=== PATIENT | male | born 1940 | race Caucasian/White ===

== ENCOUNTER 2017-04-21 01:24 | Emergency (ER) | payer MEDICARE, OTHER ==
[2016-06-29 00:12] VITALS: BMI 34.7
[~2017-04-21 01:24] MED LIST: FLUTICASONE PRO16 GM NASAL; HYDROCODONE-APA1 TAB PO; PRAVASTATIN SOD10 MG PO; PROTONIX40 MG PO; ZYRTEC10 MG PO
[2017-04-21 01:51] LABS: BASOPHILS 0.2 % (0-2); EOSINOPHILS 2.1 % (0-7); HEMATOCRIT 48.5 % (42.0-54.0); IMMATURE GRANULOCYTES 0.2 % (0-5); LYMPHOCYTES 34.9 % (15-50); MCH 31.8 pg (26.0-34.0); MCHC 35.1 g/dL (31.0-37.0); MCV 90.8 fL (80.0-100.0); MEAN PLATELET VOLUME 13.1 fL (7.4-10.4); MONOCYTES 12.6 % (2-11); PLATELET COUNT 166 10x3/uL (130-400); RBC 5.34 10x6/uL (4.20-6.10); RDW 14.3 % (11.5-14.5); WBC 12.2 10x3/uL (4.8-10.8)
[2017-04-21 02:06] LABS: ALBUMIN 3.8 g/dL (3.4-5.0); ALKALINE PHOSPHATASE 60 U/L (46-116); ALT (SGPT) 33 U/L (10-68); CALC OSMOLALITY 277 mosm/kg (275-300); CALCIUM 8.9 mg/dL (8.5-10.1); CARBON DIOXIDE 27.8 mmol/L (21.0-32.0); CHLORIDE - SERUM 104 mmol/L (98-107); CREATININE - SERUM 1.1 mg/dL (0.6-1.3); GLUCOSE 88 mg/dL (74-106); POTASSIUM - SERUM 4.4 mmol/L (3.5-5.1); PROTEIN - SERUM 6.8 g/dL (6.4-8.2); SODIUM 140 mmol/L (136-145); UREA NITROGEN 12 mg/dL (7-18); eGFR NON AFRICAN AMERICAN 69 mL/min (90-120)
[2017-04-21 02:24] LABS: CREATINE KINASE 335 UL (21-232); MAGNESIUM - SERUM 1.9 mg/dL (1.8-2.4); PRO BNP 66 pg/mL (0-125); TROPONIN-I 0.021 ng/mL (0.000-0.060)
[2017-04-21 02:26] LABS: CKMB 4.2 U/L (0.0-3.6)
== END 2017-04-21 02:30 | disposition home or self-care (01) ==
LOC: D.ER 01:24
PROVIDERS: Emergency Medicine
DX: R06.00 Dyspnea, unspecified (principal); K21.9 Gastro-esophageal reflux disease without esophagitis; R50.9 Fever, unspecified

== ENCOUNTER 2017-11-05 22:45 | Observation (INO) | payer MEDICARE, OTHER ==
[~2017-11-05] VITALS: Ht 198.1 cm; Wt 90.2 kg
--- NOTE | ~2017-11-05 | EC ---
PATIENT:SUSAN GUTIERREZ DATE OF SERVICE: 11/06/17 SEX: M MEDICAL RECORD: [id number] DATE OF : 44 LOCATION:D.M2 D.212 AGE OF PATIENT: 77 ADMISSION DATE: 11/06/17 REFERRING PHYSICIAN: INTERPRETING PHYSICIAN: CAIMLO POWELL MD ECHOCARDIOGRAM REPORT ECHO CHARGES 4 ECHO COMPLETE Date: CLINICAL DIAGNOSIS: CP - H/O MVR ECHOCARDIOGRAPHIC MEASUREMENTS (adult normal given) AC root (d.<3.7cm) 3.1 cm LV Septum d (<1.2 cm> 1.1 cm Valve Excursion 1.5 cm LV Septum (systole) 1.7 cm Left Atria (s.<4.0cm> 4.6 cm LVPW d(<1.2cm) 1.3 cm RV (d.<2.3cm) 2.8 cm LVPW (sytole) 2.0 cm LV diastole(<5.6CM) 6.6 cm MV E-F(>70mm/sec) cm LV systole 4.8 cm LVOT Diameter 2.0 cm MV exc.(>10mm) cm Est.ejection fraction (50-75%) % DOPPLER: LVIT cm/sec A 153 cm/sec E 175 cm/sec LA cm/sec RVSP 60.0 mmHg LVOT 89.0 cm/sec AOP1/2T m/s Asc. Ao 177 cm/sec RVOT 60.0 cm/sec RA cm/sec PA 89.0 cm/sec AV Gradient Peak 13.0 mmHg AV Mean 6.5 mmHg AV Area 1.9 cm MV Gradient Peak 9.3 mmHg MV Mean 3.9 mmHg MV Area cm COMMENTS: Bobbin Disker: Mariela RODRIGUEZOE Sales Team Member: 4 Dr. Powell TAPE# PACS Pericardial Effusion N DATE OF SERVICE: 11/06/2017 Transthoracic Echocardiogram FINDINGS: 1. Left ventricle has evidence of mild left ventricular hypertrophy. Ejection fraction is 65%. There are no regional wall motion abnormalities. Inflow characteristics are otherwise normal. The peak gradient across the mitral valve is 9.3 mmHg. Peak gradient across the aortic valve is 13 mmHg. 2. The mitral valve is shown to have bioprosthesis. The pressure halftime ECHOCARDIOGRAM REPORT [id number] SUSAN GUTIERREZ across it is 159. Peak pressure gradient is normal. It does not appear to have sonographic evidence of mitral regurg or mitral stenosis and we cannot see the opening and closing of the valve very well on his echocardiogram. 3. The aortic valve is sclerotic without any evidence of stenosis or significant regurgitation. 4. Tricuspid valve has moderate tricuspid regurgitation and moderate to severe evidence of pulmonary hypertension. 5. The left atrium is moderately dilated. 6. The right ventricle is normal size, normal function. 7. The pulmonic valve is grossly normal. CONCLUSION: The patient has mitral valve replacement and even though the patient has evidence of pulmonary hypertension, there does not appear to be significant sonographic evidence of mitral valve degeneration or restenosis at this point and the left atrium is although mildly dilated is not severely dilated, but of note is the suggestion of pulmonary hypertension. TRANSINT:[id number] Voice Confirmation ID: [id number] DOCUMENT ID: [id number] 11/11/2017 Edited to correct date of service, dm. CAMILO POWELL MD at 1426 CC: [id number] DICTATION DATE: 11/07/17 1152 MINUTE CLERK FOR BASIC TRAFFIC: 11/07/17 1208 DIS IN 11/07/17 [facility] [address] [place] [address]
--- NOTE | ~2017-11-05 | HEMODYNAMI ---
PATIENT:SUSAN GUTIERREZ MEDICAL RECORD: [id number] : 44 [id number] ADMISSION DATE: 11/06/17 Generatedon:11/06/201710:46 Patient name: SUSAN GUTIERREZ Patient #: [id number] SSN: : 1940 Date of study: 11/06/2017 Page: Of Hemodynamic Procedure Report Patient Data Patient Demographics Procedure consent was obtained First Name: SUSAN Gender: Male Last Name: BRENDA : 1940 [facility] Initial: J Age: 77 year(s) Patient #: [id number] Race: Unknown Additional ID: [id number] Contact details Address: [address] [place], [place] [address] [facility] State: [place] City: [place] Zip code: [address] Past Medical History Allergies: No known allergies Admission Admission Data Admission Date: 11/06/2017 Admission Time: 1:13 Admit Source: Other Room #: D.2120 Lab Results Lab Result Date: 11/06/2017 Lab Result Time: 7:29 Biochemistry Name Units Result Min Max BUN mg/dl 14 --(--*-)-- 7 18 Creatinine mg/dl 1.1 --(--*-)-- 0.6 1.3 CBC Name Units Result Min Max Hematocrit % 44.9 --(*---)-- 42 54 Hemoglobin g/dl 15.2 --(-*--)-- 13.5 17.5 Procedure Procedure Types Cath Procedure Diagnostic Procedure LHC LHC w/Coronaries Procedure Description Procedure Date Procedure Date: 11/06/2017 Procedure Start Time: 10:30 Procedure End Time: 10:44 Procedure Staff Name Function Maldonado Torres MD Performing Physician Yvette Dawson RT Monitor Bro Quijano RT Scrub Gracie Kuhn RN Nurse Procedure Data Cath Procedure Fluoroscopy Diagnostic fluoroscopy Total fluoroscopy Time: 2.6 time: 2.6 min min Diagnostic fluoroscopy Total fluoroscopy dose: 734 dose: 734 mGy mGy Contrast Material Contrast Material Type Amount (ml) Isovue 300 51 Entry Location Entry Primary Successful Side Size Upsize Upsize Entry Closure Turner ccessful Closure Location (Fr) 1 (Fr) 2 (Fr) Remarks Device Remarks Radial Right 6 Fr Mechanical artery Short Compression Estimated blood loss: 5 ml Diagnostic catheters Device Type Used For End Catheter Placement DIAGNOSTIC [place] 110cm 5 Procedure Fr catheter ([id number]) Procedure Complications No complications Procedure Medications Medication Administration Route Dosage Oxygen NC 2 l/min Lidocaine 2% added to field 20 Heparin Flush Bag added to field 2 bags (1000units/500ml NS) 0.9% NaCl I.V. 100 ml/hr Versed I.V. 2 mg Fentanyl I.V. 25 mcg Radial Cocktail I.A. 1 syringe (Verapomil 2mg/Nitro 400mcg/Heparin 1500units) Hemodynamics Rest Heart Rate: 67 (bpm) Pressure Samples Time Site Value (mmHg) Purpose Heart Use Rate(bpm) 10:35 LV 144/4,7 EDP 72 10:36 AO 136/76(102) Pullback 71 10:36 LV 145/19,4 Pullback 71 Gradients Valve Time Site 1 Site 2 Mean SEP/DFP Peak To Heart Use (mmHg) (sec/min) Peak Rate (mmHg) (bpm) Aortic 10:36 LV AO 9 13 9 71 145/19,4 136/76(102) Calculations Valve P-P Mean Valve Index Valve Source Name Gradient Area Flow (cm2) Aortic 9 9 9 9 Snapshots Pre Cath Intra NCS Post Cath Vital Signs Time Heart Resp SPO2 etCO2 NIBP (mmHg) Rhythm Pain Sedation Rate (ipm) (%) (mmHg) Status Level (bpm) 10:30:41 66 17 96 193/102(150) NSR 0 (11) 10(A) , No pain 10:34:57 72 15 97 26.9 169/89(129) NSR 0 (11) 10(A) , No pain 10:39:40 69 13 97 32.1 172/80(117) NSR 0 (11) 10(A) , No pain 10:42:17 67 14 96 34.68 171/82(140) NSR 0 (11) 10(A) , No pain Medications Time Medication Route Dose Verified Delivered Reason Notes Effectiveness by by 10:28:01 Oxygen NC 2 l/min Maldonado Bowman used for Brian Kuhn RN procedure MD 10:28:07 Lidocaine 2% added 20ml Maldonado Maldonado for local to vial Brian Torres MD anesthetic field MD 10:28:12 Heparin Flush added 2 bags Maldonado Maldonado used for Bag to Brian Torres MD procedure (1000units/500ml field NS) 10:28:21 0.9% NaCl I.V. 100 Maldonado Buffie Per ml/hr Brian Kuhn RN physician 10:32:28 Versed I.V. 2 mg Maldonado Buffie for sedation Brian Kuhn RN, MD 10:32:34 Fentanyl I.V. 25 mcg Maldonado Buffie for sedation Brian Kuhn RN, MD 10:34:35 Radial Cocktail I.A. 1 Maldonado Maldonado for (Verapomil syringe Brian Torres MD vasodilation 2mg/Nitro MD 400mcg/Heparin 1500units) Procedure Log Time Note 9:50:06 Gracie Kuhn RN sent for patient. Start room use. 9:51:28 Informed consent obtained and on chart 9:51:33 Admit Source: Other 9:52:02 Diagnostic Cath status Elective 9:52:08 Time tracking: Call back 9:52:12 Plan of Care:Hemodynamics will remain stable., Cardiac rhythm will remain stable., Comfort level will be maintained., Respiratory function will remain adequate., Patient/ family verbilizes understanding of procedure., Procedure tolerated without complication., Recovers from procedure without complications.. 10:11:27 Patient received from Pre/Post Procedure Room to CCL 1 Alert and oriented. Tansferred to table in Supine position. 10:11:29 Warm blankets applied, and munira hugger turned on for patient comfort. 10:11:30 Correct patient and procedure confirmed by team. 10:11:31 ECG and BP/O2 sat monitors applied to patient. 10:11:33 Pre-procedure instructions explained to patient. 10:11:33 Pre-op teaching completed and patient verbalized understanding. 10:11:35 Family in waiting room. 10:11:38 Patient NPO since Midnight. 10:11:46 Patient allergic to No known allergies 10:28:01 Oxygen 2 l/min NC was administered by Gracie Kuhn RN; used for procedure; 10:28:07 Lidocaine 2% 20ml vial added to field was administered by Maldonado Torres MD; for local anesthetic; 10:28:12 Heparin Flush Bag (1000units/500ml NS) 2 bags added to field was administered by Maldonado Torres MD; used for procedure; 10:28:21 0.9% NaCl 100 ml/hr I.V. was administered by Gracie Kuhn RN; Per physician; 10:29:05 Vital chart was started 10:29:07 Baseline sample Acquired. 10:29:11 Rhythm: sinus rhythm 10:29:11 Full Disclosure recording started 10:29:15 Is the patient allergic to Iodine/contrast media? No. 10:29:16 Is patient on blood thinner?Yes 10:29:18 ACC The patient was administered the following blood thiners within the last 24 hours: ACCPlavix 10:29:19 Patient diabetic? No. 10:29:22 Previous problem with sedation/anesthesia? No ? 10:29:22 Snore? Yes 10:29:23 Sleep apnea? Yes 10:29:24 Deviated septum? No 10:29:25 Opens mouth fully? Yes 10:29:26 Sticks out tongue? Yes 10:29:32 Airway obstruction? Yes childhood asthma 10:29:42 Dentures? No ? 10:29:45 Modified Chinmay's test Ulnar < 7 seconds 10:29:47 Patient pain scale 0/10 ?. 10:29:51 IV patent on arrival in left antecubital with 0.9% NaCl at [facility]. 10:29:53 Lab results completed and on chart. 10:29:55 Right Radial & Right Groin area was prepped with chlora-prep and draped in sterile fashion 10:29:56 Alarms reviewed by R. N. 10:29:56 Sharps counted by scrub and verified by R.N. 10:29:58 Use device set Radial Dx or PCI 10:29:59 ACIST Syringe (58570) opened to sterile field. 10:29:59 Medline Cath Pack ([id number]) opened to sterile field. 10:30:00 Bag Decanter () opened to sterile field. 10:30:01 ACIST Manifold (64236) opened to sterile field. 10:30:01 ACIST Hand Control (72807) opened to sterile field. 10:30:02 MBrace Wrist Support ([id number]) opened to sterile field. 10:30:03 Tegaderm 4 x 4 (1626W) opened to sterile field. 10:30:06 DIAGNOSTIC WIRE .035 260cm J wire (336509) opened to sterile field. 10:30:14 SHEATH 6Fr Prelude Radial ([id number]) opened to sterile field. 10:30:22 Physician arrived 10:: --------ALL STOP TIME OUT------ 10:: Final Timeout: patient, procedure, and site verified with staff and physician. All members of the team are in agreement. 10:30:27 Right Radial & Right Groin site verified by team. 10:30:30 Physical assessment completed. ASA score P 2 - A patient with mild systemic disease as per Maldonado Torres MD. 10:30:32 Sedation plan: IV Moderate Sedation Medication:Versed, Fentanyl 10:30:37 Procedure started. 10:30:41 Local anesthetic to right radial artery with Lidocaine 2% by Maldonado Torres MD.INITIAL ACCESS ONLY 10:31:10 A 6 Fr Short sheath was inserted into the Right Radial artery 10:31:51 Zero performed for pressure channel P1 10:32:28 Versed 2 mg I.V. was administered by Gracie Kuhn RN; for sedation; 10:32:34 Fentanyl 25 mcg I.V. was administered by Gracie Kuhn RN; for sedation; 10:33:01 Lab Result : Hematocrit 44.9 % 10:33:01 Lab Result : BUN 14 mg/dl 10:33:01 Lab Result : Creatinine 1.1 mg/dl 10:33:01 Lab Result : Hemoglobin 15.2 g/dl 10:33:21 A DIAGNOSTIC [place] 110cm 5 Fr catheter (116975) was advanced over the wire and used for Procedure. 10:34:35 Radial Cocktail (Verapomil 2mg/Nitro 400mcg/Heparin 1500units) 1 syringe I.A. was administered by Maldonado Torres MD; for vasodilation; 10:35:45 LV gram done using HAILE 10:35:48 Injector settings: Ml/sec: 10, Volume: 20, 10:35:50 LV hemodynamics recorded. 10:36:07 EF : 65 % 10:36:14 RCA angiography performed. 10:36:58 LCA angiography performed. 10:39:31 Catheter removed. 10:39:49 TR BAND Large ([id number]) opened to sterile field. 10:41:10 Sheath removed intact; hemostasis achieved with Mechanical Compression to the Right Radial artery. 10:41:12 Procedure ended.(Physican Out) 10:41:23 Fluoroscopy time 02.60 minutes. 10:41:26 Fluoroscopy dose: 734 mGy 10:41:26 Flurop Dose total: 734 10:41:29 Contrast amount:Isovue 300 51ml. 10:43:07 TR band inflated with 12cc of air. 10:43:08 Insertion/operative site no bleeding no hematoma. 10:43:13 Post right radial artery:stable, soft, clean and dry 10:43:16 Post-procedure physical assessment completed. ASA score P 2 - A patient with mild systemic disease as per Maldonado Torres MD. 10:43:18 Post procedure rhythm: unchanged. 10:43:20 Estimated blood loss: 5 ml 10:43:22 Post procedure instruction explained to patient.Patient verbalizes understanding. 10:43:22 Patient needs reinforcement of post procedure teaching. 10:43:56 Procedure and supply charges have been captured, reviewed, submitted and are correct. 10:43:58 Procedure Complication : No complications 10:44:00 Vital chart was stopped 10:44:00 See physician's report for complete and final results. 10:44:01 Report given to PCU. 10:44:03 Patient transfered to PCU with Stretcher. 10:44:05 Report given to PCU. 10:44:22 Procedure ended. 10:44:22 Full Disclosure recording stopped 10:44:27 End room use (Document Last) Device Usage Item Name Manufacture Quantity Catalog Number Hospital Part Current M inimal Lot# / Charge Number Stock Stock Serial# Code ACIST Syringe Acist 1 34879 865116 785400 [id number] 2 0 (74632) Medical Systems Vtrim Medline Cath Cardinal 1 [id number] 113470 94935 171859 5 Pack Health ([id number]) Bag Decanter Microtek 1 032395 14492 339438 5 () Medical Inc. ACIST Manifold Acist 1 58280 879749 477540 663791 5 (80882) Medical Systems Inc ACIST Hand Acist 1 12332 273701 499864 655311 5 Control (68800) Medical Systems Inc MBrace Wrist Advanced 1 140-0250-00 439782 45964 755934 5 Support Vascular ([id number]) Dynamics Tegaderm 4 x 4 3M 1 1626W 519675 686491 028731 5 (1626W) DIAGNOSTIC WIRE [facility] Maxim[facility]iano 1 710497 315803 108877 281112 3 0 .035 260cm J wire (554619) SHEATH 6Fr Merit 1 [id number] 241591 337623 459679 5 Prelude Radial Medical ([id number]) DIAGNOSTIC Terumo 1 40-5903 006660 169732 333302 5 [place] 110cm 5 Fr catheter (445906) TR BAND Large Terumo 1 [id number] 290642 601780 590332 4 0 ([id number]) Signature Audit [place] Time Signature Unsigned Intra-Procedure 11/06/2017 Bro Quijano 10:46:10 AM RT(R) Signatures Monitor : Yvette Dawson Signature : RT Date : Time : [facility] [address] [place] [address]
[2017-11-05 23:18] LABS: BASOPHILS 0.2 % (0-2); EOSINOPHILS 0.3 % (0-7); HEMATOCRIT 45.7 % (42.0-54.0); HEMOGLOBIN 15.7 g/dL (13.5-17.5); IMMATURE GRANULOCYTES 0.2 % (0-5); LYMPHOCYTES 26.5 % (15-50); MCH 31.4 pg (26.0-34.0); MCHC 34.4 g/dL (31.0-37.0); MCV 91.4 fL (80.0-100.0); MEAN PLATELET VOLUME 12.8 fL (7.4-10.4); MONOCYTES 16.8 % (2-11); PLATELET COUNT 180 10x3/uL (130-400); RDW 15.1 % (11.5-14.5); WBC 12.3 10x3/uL (4.8-10.8)
[2017-11-05 23:47] LABS: ALBUMIN 3.4 g/dL (3.4-5.0); ALKALINE PHOSPHATASE 58 U/L (46-116); ALT (SGPT) 25 U/L (10-68); BILIRUBIN - TOTAL 0.45 mg/dL (0.2-1.3); CALCIUM 8.5 mg/dL (8.5-10.1); CARBON DIOXIDE 25.5 mmol/L (21.0-32.0); CHLORIDE - SERUM 105 mmol/L (98-107); CREATININE - SERUM 1.1 mg/dL (0.6-1.3); POTASSIUM - SERUM 3.9 mmol/L (3.5-5.1); SODIUM 138 mmol/L (136-145); UREA NITROGEN 15 mg/dL (7-18); eGFR NON AFRICAN AMERICAN 69 mL/min (90-120)
[2017-11-05 23:52] LABS: CALC OSMOLALITY 279 mosm/kg (275-300); GLUCOSE 161 mg/dL (74-106); PROTEIN - SERUM 4.2 g/dL (6.4-8.2)
[2017-11-06] LABS: CREATINE KINASE 270 UL (21-232); PRO BNP 138 pg/mL (0-450); TROPONIN-I < 0.017 ng/mL (0.000-0.060)
[2017-11-06 00:01] LABS: CKMB 3.9 U/L (0.0-3.6)
[2017-11-06 03:14] LABS: CKMB 3.3 U/L (0.0-3.6); CREATINE KINASE 225 UL (21-232)
[2017-11-06 03:15] LABS: TROPONIN-I < 0.017 ng/mL (0.000-0.060)
[2017-11-06 03:55] VITALS: BP 167/72; BMI 34.7
[2017-11-06] MEDS ORDERED: XYZAL5 MG PO (04:12)
[2017-11-06 07:59] LABS: CKMB 3.1 U/L (0.0-3.6); CREATINE KINASE 187 UL (21-232); TROPONIN-I < 0.017 ng/mL (0.000-0.060)
[2017-11-06 09:10] VITALS: Ht 198.1 cm; Wt 90.2 kg
[2017-11-06 09:30] LABS: CALCIUM 8.6 mg/dL (8.5-10.1); CARBON DIOXIDE 26.5 mmol/L (21.0-32.0); CREATININE - SERUM 1.1 mg/dL (0.6-1.3)
[2017-11-06 09:33] LABS: HEMATOCRIT 44.9 % (42.0-54.0); HEMOGLOBIN 15.2 g/dL (13.5-17.5); LYMPHOCYTES 30.3 % (15-50); MCH 30.8 pg (26.0-34.0); MCHC 33.9 g/dL (31.0-37.0); MCV 91.1 fL (80.0-100.0); MEAN PLATELET VOLUME 13.1 fL (7.4-10.4); NEUTROPHILS 54.2 % (40-80); PLATELET COUNT 146 10x3/uL (130-400); RBC 4.93 10x6/uL (4.20-6.10); RDW 15.2 % (11.5-14.5); WBC 9.4 10x3/uL (4.8-10.8)
[2017-11-06 09:34] LABS: POTASSIUM - SERUM 4.5 mmol/L (3.5-5.1)
[2017-11-06 10:15] VITALS: BP 155/74
[2017-11-06 12:35] VITALS: BP 149/71
[2017-11-06 14:18] LABS: CKMB 2.5 U/L (0.0-3.6); CREATINE KINASE 151 UL (21-232); TROPONIN-I 0.016 ng/mL (0.000-0.060)
[2017-11-06 16:19] VITALS: BP 146/68
[2017-11-06 20:00] VITALS: BP 169/79
[2017-11-07] VITALS: BP 162/76
[2017-11-07 04:00] VITALS: BP 144/70
[2017-11-07 09:09] VITALS: BP 162/71
[2017-11-07] MEDS ORDERED: VENTOLIN HFA18 GM INH (12:17)
[2017-11-07] MEDS ORDERED: MEDROL DOSE PACK4 MG PO (12:17)
[2017-11-07] MEDS ORDERED: ZPAK PO (12:18)
[2017-11-07 14:53] VITALS: BP 170/76
== END 2017-11-07 16:10 | disposition home or self-care (01) ==
LOC: D.ER 22:45 → OBSVTIME 11-06 01:13 → D.M2 11-06 01:13 → D.EDHOLD 11-06 01:13 → D.M2 11-06 01:27
PROVIDERS: Emergency Medicine; Internal Medicine Cardiovascular Disease
DX: J20.9 Acute bronchitis, unspecified (principal); K29.70 Gastritis, unspecified, without bleeding; K44.9 Diaphragmatic hernia without obstruction or gangrene; E66.9 Obesity, unspecified; I10 Essential (primary) hypertension; Z86.73 Personal history of transient ischemic attack (TIA), and cerebral infarction without residual deficits; I25.10 Atherosclerotic heart disease of native coronary artery without angina pectoris; R73.03 Prediabetes

== ENCOUNTER → 2018-12-22 09:01 | Outpatient (CLI) | payer MEDICARE, OTHER ==
[2017-11-06 09:10] VITALS: BMI 34.7
[~2018-12-22 09:01] MED LIST changes: +MEDROL DOSE PACK4 MG PO; +VENTOLIN HFA18 GM INH; +XYZAL5 MG PO; +ZPAK PO
--- NOTE | 2018-12-23 16:42 | EC ---
PATIENT:SUSNA GUTIERREZ DATE OF SERVICE: 12/22/18 SEX: M MEDICAL RECORD: [id number] DATE OF : 44 [facility]: 78 ADMISSION DATE: 12/22/18 REFERRING PHYSICIAN: INTERPRETING PHYSICIAN: MARY HAMPTON MD ECHOCARDIOGRAM REPORT ECHO CHARGES 4 ECHO COMPLETE Date: 12/22/18 CLINICAL DIAGNOSIS: CAD/MVR (TISSUE/BOVINE) HX HTN ECHOCARDIOGRAPHIC MEASUREMENTS (adult normal given) AC root (d.<3.7cm) 4.5 cm LV Septum d (<1.2 cm> 1.2 cm Valve Excursion 1.6 cm LV Septum (systole) 1.5 cm Left Atria (s.<4.0cm> 4.0 cm LVPW d(<1.2cm) 1.6 cm RV (d.<2.3cm) 4.1 cm LVPW (sytole) 1.9 cm LV diastole(<5.6CM) 5.9 cm MV E-F(>70mm/sec) cm LV systole 4.6 cm LVOT Diameter 1.9 cm MV exc.(>10mm) cm Est.ejection fraction (50-75%) % DOPPLER: LVIT cm/sec A 114 cm/sec E 124 cm/sec LA cm/sec RVSP 34 mmHg LVOT 103 cm/sec AOP1/2T 918 m/s Asc. Ao 211 cm/sec RVOT 76 cm/sec RA cm/sec PA 117 cm/sec AV Gradient Peak 17.74mmHg AV Mean 10.20mmHg AV Area 1.5 cm MV Gradient Peak 8.53 mmHg MV Mean 4.10 mmHg MV Area cm COMMENTS: Electrocardiograph Operator: Josh FRANKLIN Lathe Mechanic: 1 Dr. Hampton TAPE# PACS Pericardial Effusion N DATE OF SERVICE: 12/22/2018 PROCEDURE: Echocardiogram. FINDINGS: 1. Left ventricular chamber size is mildly dilated. Left ventricular systolic function is preserved at 55%. 2. Left atrium upper limits of normal at 4.0 cm. Right atrium and right ventricular chamber sizes are [id number] dilated. 3. Valvular structures: Mitral valve is replaced with a tissue prosthesis with ECHOCARDIOGRAM REPORT [id number] SUSAN GUTIERREZ normal structure and function in this position. The remaining valvular structures have normal structure and motion. 4. Doppler interrogation reveals moderate aortic insufficiency, mild tricuspid regurgitation, no other valvular insufficiency or stenosis. Pulmonary systolic pressure is normal estimated 34 mmHg. 5. No evidence of pericardial effusion or left ventricular thrombus. TRANSINT:[id number] Voice Confirmation ID: [id number] DOCUMENT ID: [id number] MARY HAMPTON MD at 1642 CC: [id number] DICTATION DATE: 12/23/18940 TAX AUDITOR: 12/23/1858 DEP CLI 12/22/18 [address] [place] [address]
== END | disposition home or self-care (01) ==
LOC: D.HCCARDIO 09:01
PROVIDERS: ATTEND Internal Medicine Interventional Cardiology
DX: I25.10 Atherosclerotic heart disease of native coronary artery without angina pectoris (principal)